=== PATIENT | male | born 1980 | race Asian ===

== ENCOUNTER 2016-08-20 09:08 | Emergency (ER) | payer OTHER ==
[~2016-08-20 09:08] MED LIST: ACETAMINOPHEN120 ML PO; ALBUTEROL17 GM INH; AMOXICILLIN875 M1 PO; NO HOME MEDICATION XX; OMNICEF300 MG
[2016-08-20 11:40] LABS: BASO % 0.6 % (0-2); EOS % 5.2 % (0-7); EOSINOPHIL ABSOLUTE COUNT 0.4 tho/cmm (0.0-0.7); HCT-HEMATOCRIT 44.2 % (36.0-53.5); HGB-HEMOGLOBIN 14.7 gm/dl (13.5-17.0); IMMATURE GRANULOCYTES ABSOLUTE 0.02 tho/cmm (0-0.03); IMMATURE GRANULOCYTES PERCENT 0.3 % (0-0.3); LYMPH % 25.6 % (20-45); LYMPH ABSOLUTE COUNT 1.7 tho/cmm (0.8-4.5); MCH (MEAN CORPUSCULAR HGB) 31.7 pg (28.0-32.0); MCHC MEAN CORPUSCULAR HGB CONC 33.3 % (32.0-36.0); MCV (MEAN CELL VOLUME) 95.5 fl (82.0-96.0); MEAN PLATELET VOLUME 9.6 cmc (9.4-12.4); MONO % 1.9 % (0-12); MONOCYTE ABSOLUTE COUNT 0.1 tho/cmm (0.0-1.2); NEUTROPHIL ABSOLUTE COUNT 4.5 tho/cmm (1.6-8.0); NEUTROPHIL-AUTOMATED 4.5 tho/cmm (1.6-8.0); NEUTROPHILS % 66.4 % (40-80); PLATELET COUNT 182 tho/cmm (150-450); RED BLOOD COUNT 4.63 mil/cmm (4.40-5.70); RED CELL DISTRIBUTION WIDTH 12.7 % (12.4-16.4); WHITE BLOOD COUNT 6.8 tho/cmm (4.0-10.0)
[2016-08-20 11:52] LABS: ALB/GLOB RATIO 1.1 (0.8-2.0); ALBUMIN 4.1 g/dl (3.5-5.0); ALKALINE PHOSPHATASE 67 U/L (33-138); ALT/SGPT 37 U/L (12-78); BILIRUBIN,TOTAL 0.7 mg/dl (0.0-1.5); BLOOD UREA NITROGEN 16 mg/dl (6-24); CALCIUM 8.9 mg/dl (8.5-10.5); CARBON DIOXIDE-VENOUS 25 mmol/L (22-32); CHLORIDE 109 mmol/l (96-110); CREATININE 0.78 mg/dl (0.60-1.30); GLUCOSE 101 mg/dL (70-110); LIPASE 136 U/L (73-393); SODIUM 141 mmol/L (135-145); eGFR VALUE FOR BLACK >90 mL/Min
[2016-08-20 11:53] LABS: URINE APPEARANCE CLEAR; URINE BILIRUBIN NEGATIVE (NEG); URINE BLOOD SMALL (NEG); URINE COLOR PALE YELLOW; URINE GLUCOSE (UA) NEGATIVE (NEG); URINE KETONE NEGATIVE (NEG); URINE LEUKOCYTE ESTERASE NEGATIVE (NEG); URINE NITRITE NEGATIVE (NEG); URINE PROTEIN NEGATIVE (NEG)
[2016-08-20 11:55] LABS: ANION GAP 12 mmol/L (0-20); AST/SGOT 27 U/L (10-40); POTASSIUM 4.5 mmol/L (3.7-5.1)
[2016-08-20 11:59] LABS: URINE EPITHELIAL CELLS 0-2 /[HPF] (0-10); URINE MUCUS 2+; URINE RBC 0-2 /[HPF] (0-5); URINE WBC 0 /[HPF] (0-5)
[2016-08-20] MEDS ORDERED: CYCLOBENZAPRINE10 M1 PO (13:31)
[2016-08-20] MEDS ORDERED: PERCOCET 5-3251 EACH PO (13:31)
== END 2016-08-20 13:40 ==
LOC: EDMED 09:08
PROVIDERS: Emergency Medicine
DX: M51.36 Other intervertebral disc degeneration, lumbar region (principal); M54.5 Low back pain; F17.200 Nicotine dependence, unspecified, uncomplicated
CPT/HCPCS: J1100; J1170

== ENCOUNTER 2016-09-17 13:01 | Emergency (ER) | payer OTHER ==
[~2016-09-17 13:01] MED LIST changes: +CYCLOBENZAPRINE10 M1 PO; +PERCOCET 5-3251 EACH PO
[2016-09-17] MEDS ORDERED: DICLOFENAC SODI75 M2 PO (13:18)
[2016-09-17] MEDS ORDERED: OXYCODONE-ACET1 EAC3 PO (15:17)
== END 2016-09-17 15:34 ==
LOC: EDMED 13:01
DX: S93.402A Sprain of unspecified ligament of left ankle, initial encounter (principal); S63.502A Unspecified sprain of left wrist, initial encounter; S50.01XA Contusion of right elbow, initial encounter; S60.222A Contusion of left hand, initial encounter; F17.200 Nicotine dependence, unspecified, uncomplicated; W11.XXXA Fall on and from ladder, initial encounter; Y92.69 Other specified industrial and construction area as the place of occurrence of the external cause; Y99.0 Civilian activity done for income or pay
CPT/HCPCS: J1170